=== PATIENT | female | born 1975 | race Caucasian/White ===

== ENCOUNTER 2016-08-12 13:52 | Emergency (ER) | payer OTHER ==
[~2016-08-12] VITALS: Ht 165.1 cm; Wt 93.2 kg
[2016-08-12 13:59] VITALS: BP 117/83; PULSE 98; RESP 14; O2SAT 96
--- NOTE | 2016-08-12 14:07 | ED.REPORT ---
HPI-Abd Pain F Under 42 Date of Service Aug 12, 2016 ED Provider: Jarrell Amin MD Pt is a 40 y/o female presenting to the ED c/o nausea and vomiting onset 11:30 today. She c/o associated mild diffuse abdominal pain, diarrhea, lightheadedness. She denies flank pain, dysuria, hematemesis, hematochezia, sick contacts. She has never experienced similar symptoms. She denies smoking or alcohol use. Abdominal surgeries: x2 Nursing Notes Stated Complaint: VOMITING Chief Complaint: Female Abdominal Pain Nursing Notes Reviewed: Yes Allergies: Coded Allergies: aspirin (Verified Allergy, Severe, Anaphylaxis, 06/17/16) amoxicillin (Verified Allergy, Unknown, RASH, 08/12/16) No Active Prescriptions or Reported Meds General Time Seen by MD: 14:05 Chief Complaint Other (N/V/D) Hx Obtained From: Patient Arrived By: Walk-in Sudden in Onset?: Yes Onset Occurred: 1 - 4 hours ago Symptom Duration: Since onset Location: : Diffuse Quality: Aching Severity: Current: Mild Severity: Maximum: Mild Past Medical History Past Medical History PCOS Otherwise denies Past Surgical History x2 Smoking History Never Smoker Social History Alcohol Use: Denies alcohol use Ambulatory Status Independent Review of Systems Constitutional: Denies: Chills, Fever Respiratory: Denies: Non-productive cough, Shortness of breath Cardiovascular: Denies: Chest pain GI: Reports: Abdominal pain, Diarrhea, Nausea, Vomiting, Denies: Bloody/tarry stool, Hematemesis, Hematochezia, Melena Female: Denies: Dysuria, Flank pain Musculoskeletal: Denies: Back pain Complete sys rev & neg: except as marked. Neurologic: Reports: Lightheaded Physical Exam Initial Vital Signs Vital Signs (First) Date Time Temp Pulse Resp B/P Pulse Ox O2 Delivery O2 Flow Rate FiO2 08/12/16 13:59 36.6 98 14 117/83 96 Room Air Initial VS: Reviewed, Vital signs normal Head / Eyes: Atraumatic, Normocephalic, PERRL ENT: Mucous membranes moist, Conjunctiva normal, No scleral icterus Neck: Supple, Full range of motion Extremities: Vascular intact, Neuro intact, No swelling, No tenderness Skin: Warm, Dry, No cyanosis Neurologic: Alert, Oriented, Nonfocal Psychiatric: Mood/affect normal, Behavior normal, Normal thought content General/Constitutional: Awake, Alert, No acute distress, Cooperative, Not toxic appearing Respiratory / Chest: Atraumatic, Breath sounds NL, Breath sounds = bilat, No respiratory distress, No rales, No rhonchi, No wheezing, No retractions, No stridor, No chest tenderness, No chest wall deformity, No crepitus Cardiovascular: Heart rate NL, Regular rhythm, Heart sounds NL, No gallop, No murmurs, No rubs, Cap refill not delayed, Peripheral circulation NL Abdomen: Atraumatic, Soft, Non-tender, No guarding, No rebound, No palpable mass Actively vomiting Back: Full range of motion, Painless range of motion, No CVA tenderness Interpretation & Diagnostics Lab Results Interpretation Result Diagram: 08/12/16 1438 08/12/16 1438 Test 08/12/16 14:38 White Blood Count 11.1th/mm3 (3.8-10.1) Red Blood Count 5.47mil/mm3 (3.90-5.20) Hemoglobin 16.4g/dL (12.0-15.6) Hematocrit 49.1% (35.0-46.0) Mean Corpuscular Volume 89.8fL (81-100) Mean Corpuscular Hemoglobin 30.0pg (27.0-35.0) Mean Corpuscular Hemoglobin Concent 33.4% (32.0-37.0) Red Cell Distribution Width 12.7% (12.3-15.4) Platelet Count 274bil/L (150-400) Neutrophils (%) (Auto) 85.4% (40-74) Lymphocytes (%) (Auto) 7.3% (14-46) Monocytes (%) (Auto) 4.4% (4-12) Eosinophils (%) (Auto) 2.3% (0-5) Basophils (%) (Auto) 0.3% (0-3) Sodium Level 139mEq/L (134-144) Potassium Level 3.9mEq/L (3.5-5.2) Chloride Level 99mEq/L (97-108) Carbon Dioxide Level 24mmol/L (18-29) Blood Urea Nitrogen 12mg/dL (6-20) Creatinine 0.72mg/dL (0.57-1.00) Estimat Glomerular Filtration Rate 130mL/min (>59) Glucose Level 146mg/dL (60-99) Calcium Level 10.1mg/dL (8.5-10.1) Magnesium Level 1.9mg/dL (1.6-2.6) Total Bilirubin 0.5mg/dL (0.0-1.2) Aspartate Amino Transf (AST/SGOT) 31U/L (0-50) Alanine Aminotransferase (ALT/SGPT) 56U/L (0-32) Alkaline Phosphatase 70U/L (25-150) Total Protein 8.3g/dL (6.4-8.4) Albumin 5.0g/dL (3.4-5.0) Lipase 30U/L (13-60) Hold Kahn Top Tube Received (Received) Re-Eval/Medical Decision Re-Evaluation/Progress : Time of Eval: 15:35 Patient Status: Condition improved, Moderate relief, Pain improved Re-Evaluation/Progress Note: Abdominal pain is much better, diarrhea is less. She does feel chills. Counseled Regarding: Diagnosis, Lab results, Need for follow-up, When/why to return to ED Discharge & Departure Primary Impression: Acute gastroenteritis Disposition: Home Discharge Condition All VS Reviewed: Yes Condition: Stable Patient Instructions: Gastroenteritis (ED) Additional Instructions: I recommended Imodium 1 tablet orally with every diarrheal stool. This is an [id number] medication. Do not take more than 8 pills in 24 hours. Use ondansetron as needed for nausea. Keep yourself well hydrated by sipping at clear liquids frequently. You should be taking in about a liter of fluid every 2 or 3 hours. Follow up with your doctor in 2 or 3 days if you are not dramatically improved. Referrals: Bridget Overton MD (PCP) Scribe Attestation Portions of this note were transcribed by Vinay Dennis. I, Dr. Amin personally performed the history, physical exam and medical decision-making; I reviewed and confirmed the accuracy of the information in the transcribed note. Signed by Simon Rajput, 08/12/16 - 3412 copies to: Bridget Overton MD, Kirk H MD Aug 12, 2016 14:07 VINAY DENNIS Aug 12, 2016 14:14
[2016-08-12] MEDS ORDERED: Ondansetron 2 mg/mL 2 mL Inj IVPUSH PRN (14:10)
[2016-08-12] MEDS ORDERED: 0.9% Sodium Chloride 1,000 ML IV ONE (14:10)
[2016-08-12] MEDS ORDERED: Pantoprazole 4 mg/mL 10 mL Inj IVPUSH ONE (14:10)
[2016-08-12 14:48] LABS: BASOPHILS % (AUTO) 0.3 % (0-3); EOSINOPHILS % (AUTO) 2.3 % (0-5); MONOCYTES % (AUTO) 4.4 % (4-12); Mean Corpuscular Volume 89.8 fL (81-100); NEUTROPHILS % (AUTO) 85.4 % (40-74); Platelet Count 274 bil/L (150-400)
[2016-08-12 15:15] LABS: Magnesium 1.9 mg/dL (1.6-2.6)
[2016-08-12] MEDS ORDERED: ONDA4TAB9 PO (15:40)
[2016-08-12 15:54] VITALS: BP_SYST 126; PULSE 93; O2SAT 99
== END 2016-08-12 15:56 | disposition home or self-care (01) ==
LOC: SED 13:52
DX: K52.9 Noninfective gastroenteritis and colitis, unspecified (principal); Z88.0 Allergy status to penicillin; Z88.8 Allergy status to other drugs, medicaments and biological substances
CPT/HCPCS: 36415; 80053; 83690; 83735; 85025; 96361; 96374; 96375; 99285; J2405; J7030